=== PATIENT | female | born 1970 | race Caucasian/White ===

== ENCOUNTER 2019-06-13 06:29 | Emergency (ER) | payer OTHER ==
[~2019-06-13] VITALS: Ht 157.5 cm; Wt 47.6 kg
[~2019-06-13 06:29] MED LIST: CYCLOBENZAPRINE5 MG PO; NORCO 5-325 TA1 EACH PO
== END 2019-06-13 07:30 | disposition home or self-care (01) ==
LOC: ED 06:29
DX: S43.402A Unspecified sprain of left shoulder joint, initial encounter (principal); W18.30XA Fall on same level, unspecified, initial encounter; F17.200 Nicotine dependence, unspecified, uncomplicated; Z91.013 Allergy to seafood
CPT/HCPCS: 73030; 99283-25; A9270

== ENCOUNTER 2020-01-02 10:02 | Emergency (ER) | payer OTHER ==
[~2020-01-02] VITALS: Ht 157.5 cm; Wt 45.4 kg
[2020-01-02] MEDS ORDERED: MAPAP500 M1 PO (10:13)
[2020-01-02] MEDS ORDERED: IBUPROFEN200 MG PO (10:13)
== END 2020-01-02 12:05 | disposition home or self-care (01) ==
LOC: ED 10:02
DX: S46.912A Strain of unspecified muscle, fascia and tendon at shoulder and upper arm level, left arm, initial encounter (principal); F17.200 Nicotine dependence, unspecified, uncomplicated; Z91.013 Allergy to seafood; Y93.89 Activity, other specified; X58.XXXA Exposure to other specified factors, initial encounter
CPT/HCPCS: 73030; 99283-25

== ENCOUNTER 2024-05-30 21:42 | Emergency (ER) | payer BC, OTHER ==
[~2024-05-30] VITALS: Ht 154.9 cm; Wt 54.0 kg
[~2024-05-30 21:42] MED LIST changes: +IBUPROFEN200 MG PO; +MAPAP500 M1 PO
[2024-05-30 22:49] VITALS: BP 121/93
== END 2024-05-30 22:49 | disposition home or self-care (01) ==
LOC: ED 21:42
DX: S43.401A Unspecified sprain of right shoulder joint, initial encounter (principal); F17.200 Nicotine dependence, unspecified, uncomplicated; Z91.013 Allergy to seafood; W18.30XA Fall on same level, unspecified, initial encounter
CPT/HCPCS: 73030; 73060; 99283